=== PATIENT | male | born 1990 | race Caucasian/White ===

== ENCOUNTER 2016-10-09 23:38 | Emergency (ER) | payer OTHER ==
[2016-10-10 00:41] VITALS: BP 138/82
== END 2016-10-10 00:41 | disposition home or self-care (01) ==
LOC: ED 23:38
DX: S01.81XA Laceration without foreign body of other part of head, initial encounter (principal); W22.8XXA Striking against or struck by other objects, initial encounter; Y93.89 Activity, other specified; Y92.89 Other specified places as the place of occurrence of the external cause; Y99.8 Other external cause status
CPT/HCPCS: J2001